=== PATIENT | female | born 1985 | race American Indian/Alaskan Native ===

== ENCOUNTER 2017-03-29 21:32 | Emergency (ER) | payer OTHER ==
[2017-03-29 22:20] LABS: Basophils % (Auto) 0.6 % (0.0-1.8); Eosinophils % (Auto) 0.8 % (0.0-4.3); Hematocrit 37.1 % (30.3-42.9); Hemoglobin 12.6 gm/dl (10.1-14.3); Mean Corpuscular HGB Conc 34 % (30-34); Mean Corpuscular Hemoglobin 32 pg (28-32); Mean Corpuscular Volume 94 fl (79-97); Platelet Count 345 K/mm3 (140-440); Red Blood Count 3.96 M/mm3 (3.65-5.03); Red Cell Distribution Width 13.6 % (13.2-15.2); White Blood Count 11.3 K/mm3 (4.5-11.0)
[2017-03-29 22:37] LABS: BUN/Creatinine Ratio 7.27; Calcium 9.4 mg/dL (8.4-10.2); Chloride 102.2 mmol/L (98-107); Potassium 3.9 mmol/L (3.6-5.0)
[2017-03-30 09:00] LABS: Urine Drugs of Abuse Note Disclamer
[2017-03-30 09:09] LABS: Bilirubin,Urine NEG (Negative); Blood,Urine NEG (Negative); Ketones,Urine TR mg/dL (Negative); Leukocyte Esterase,Urine NEG (Negative); Mucus,Urine FEW /HPF; Nitrite,Urine NEG (Negative); Urobilinogen,Urine < 2.0 mg/dL (<2.0)
[2017-03-30] MEDS ORDERED: ULTRAM PO ONE (11:09)
[2017-03-30] MEDS ORDERED: ZOFRAN ODT PO ONE (11:09)
[2017-03-30] MEDS ORDERED: NORVASC PO ONE (11:14)
--- NOTE | 2017-03-30 11:14 | Emergency Department Report ---
History of Present Illness - General Chief Complaint: Overdose Stated Complaint: MH EVAL/ATTEMPTED SUICIDE Time Seen by Provider: 03/30/17 10:36 Source: patient Mode of arrival: Ambulatory Limitations: No Limitations - History of Present Illness Initial Comments: 31 yo female the past medical history of bipolar disorder presents to the hospital complaints of suicide attempt via overdose. At 1 PM 03/29/2017 patient took 7 Motrin tablets, gabapentin 8 tablets, Tylenol 10 tablets. Patient does not know the doses of any of her medications. Patient states she is just tired of life. Complaint of feeling thirsty upon arrival. Patient complains of some generalized abdominal tenderness that started since being in the ED. Associated nausea. No complaints of vomiting, diarrhea, fever, or dysuria. Patient does not take any psychiatric medication. Previous history of suicide attempt via overdose in the past. Denies hallucinations. - Related Data Allergies Allergy/AdvReac Type Severity Reaction Status Date / Time No Known Allergies Allergy Verified 03/29/17 21:54 ED Review of Systems ROS: Stated complaint: MH EVAL/ATTEMPTED SUICIDE Other details as noted in HPI Comment: All other systems reviewed and negative Other: Constitutional: No fevers chills Eyes: No eye pain visual changes ENT: No ear pain or throat pain Neck: Denies pain Respiratory: Denies cough wheezing shortness of breath Cardiovascular: Denies chest pain, palpitations, syncope GI: As per HPI : Denies dysuria Musculoskeletal: Denies back pain Skin: Denies rash, lesions, erythema Neurologic: Denies headache, numbness, weakness Psychiatric: As per HPI ED Past Medical Hx - Past Medical History Previous Medical History?: Yes Hx Psychiatric Treatment: Yes (DEPRESSION / BIPOLAR) - Surgical History Past Surgical History?: Yes Hx Appendectomy: Yes Additional Surgical History: 3. Ectopic surgery - Social History Smoking Status: Current Every Day Smoker Substance Use Type: Alcohol ED Physical Exam - General Limitations: No Limitations - Other Other exam information: General: No limitations, patient is alert in no acute distress Head exam: Atraumatic, normocephalic Eyes exam: Normal appearance, nonicteric sclera ENT: Moist mucous membrane, normal oropharynx Neck exam: Normal inspection, full range of motion, no meningismus nontender Respiratory exam: Clear to auscultation bilateral, no wheezes, rales, crackles Cardiovascular: Normal rate and rhythm, normal heart sounds Abdomen: Soft, nondistended, mild generalized tenderness, with normal bowel sounds, no rebound, or guarding Extremity: Full range of motion normal inspection no deformity Back: Normal Inspection, full range of motion, no tenderness Neurologic: Alert, oriented x3, cranial nerves intact, no motor or sensory deficit. Stuttering speech intermittently Psychiatric: normal affect, normal mood Skin: Warm, dry, intact ED Course Vital Signs 03/29/17 03/30/17 03/30/17 21:54 01:49 08:10 Temperature 98.4 F 98.6 F 98.9 F Pulse Rate 101 H 83 96 H Respiratory 16 20 15 Rate Blood Pressure 167/113 143/102 157/107 Blood Pressure [Left] O2 Sat by Pulse 98 100 100 Oximetry 03/30/17 03/30/17 03/30/17 12:01 14:12 16:55 Temperature 98 F Pulse Rate 88 88 Respiratory 18 Rate Blood Pressure 136/82 Blood Pressure 136/82 [Left] O2 Sat by Pulse Oximetry - Reevaluation(s) Reevaluation #1: 03/30/17 11:13 Zofran and tramadol provided for nausea and pain. Norvasc ordered for persistent hypotension during ED stay ED Medical Decision Making - Lab Data Result diagrams: 03/29/17 22:07 03/29/17 22:07 Lab Results 03/29/17 03/29/17 03/29/17 Range/Units 22:07 22:07 22:07 WBC (4.5-11.0) K/mm3 RBC (3.65-5.03) M/mm3 Hgb (10.1-14.3) gm/dl Hct (30.3-42.9) % MCV (79-97) fl MCH (28-32) pg MCHC (30-34) % RDW (13.2-15.2) % Plt Count (140-440) K/mm3 Lymph % (Auto) (13.4-35.0) % [place] % (Auto) (0.0-7.3) % Eos % (Auto) (0.0-4.3) % Baso % (Auto) (0.0-1.8) % Lymph # (1.2-5.4) K/mm3 [place] # (0.0-0.8) K/mm3 Eos # (0.0-0.4) K/mm3 Baso # (0.0-0.1) K/mm3 Seg Neutrophils % (40.0-70.0) % Seg Neutrophils # (1.8-7.7) K/mm3 Sodium 143 (137-145) mmol/L Potassium 3.9 (3.6-5.0) mmol/L Chloride 102.2 (98-107) mmol/L Carbon Dioxide 26 (22-30) mmol/L Anion Gap 19 mmol/L BUN 8 (7-17) mg/dL Creatinine 1.1 (0.7-1.2) mg/dL Estimated GFR 59 ml/min BUN/Creatinine Ratio 7.27 % Glucose 83 (65-100) mg/dL Calcium 9.4 (8.4-10.2) mg/dL Total Bilirubin (0.1-1.2) mg/dL Direct Bilirubin (0-0.2) mg/dL AST (5-40) units/L ALT (7-56) units/L Alkaline Phosphatase (35-129) units/L Total Protein (6.3-8.2) g/dL Albumin (3.9-5) g/dL Albumin/Globulin Ratio % HCG, Qual (Negative) Urine Color (Yellow) Urine Turbidity (Clear) Urine pH (5.0-7.0) Ur Specific [place] (1.003-1.030) Urine Protein (Negative) mg/dL Urine Glucose (UA) (Negative) mg/dL Urine Ketones (Negative) mg/dL Urine Blood (Negative) Urine Nitrite (Negative) Urine Bilirubin (Negative) Urine Urobilinogen (<2.0) mg/dL Ur Leukocyte Esterase (Negative) Urine WBC (Auto) (0.0-6.0) /HPF Urine RBC (Auto) (0.0-6.0) /HPF U Epithel Cells (Auto) (0-13.0) /HPF Urine Mucus /HPF Salicylates < 0.3 L (2.8-20.0) mg/dL Urine Opiates Screen Urine Methadone Screen Acetaminophen 20.7 (10.0-30.0) ug/mL Ur Barbiturates Screen Ur Phencyclidine Scrn Ur Amphetamines Screen U Benzodiazepines Scrn Urine Cocaine Screen U Marijuana (THC) Screen Drugs of Abuse Note Plasma/Serum Alcohol (0-0.07) gm% 03/29/17 03/29/17 03/29/17 Range/Units 22:07 22:07 22:07 WBC 11.3 H (4.5-11.0) K/mm3 RBC 3.96 (3.65-5.03) M/mm3 Hgb 12.6 (10.1-14.3) gm/dl Hct 37.1 (30.3-42.9) % MCV 94 (79-97) fl MCH 32 (28-32) pg MCHC 34 (30-34) % RDW 13.6 (13.2-15.2) % Plt Count 345 (140-440) K/mm3 Lymph % (Auto) 23.7 (13.4-35.0) % Motley % (Auto) 5.5 (0.0-7.3) % Eos % (Auto) 0.8 (0.0-4.3) % Baso % (Auto) 0.6 (0.0-1.8) % Lymph # 2.7 (1.2-5.4) K/mm3 [place] # 0.6 (0.0-0.8) K/mm3 Eos # 0.1 (0.0-0.4) K/mm3 Baso # 0.1 (0.0-0.1) K/mm3 Seg Neutrophils % 69.4 (40.0-70.0) % Seg Neutrophils # 7.8 H (1.8-7.7) K/mm3 Sodium (137-145) mmol/L Potassium (3.6-5.0) mmol/L Chloride (98-107) mmol/L Carbon Dioxide (22-30) mmol/L Anion Gap mmol/L BUN (7-17) mg/dL Creatinine (0.7-1.2) mg/dL Estimated GFR ml/min BUN/Creatinine Ratio % Glucose (65-100) mg/dL Calcium (8.4-10.2) mg/dL Total Bilirubin (0.1-1.2) mg/dL Direct Bilirubin (0-0.2) mg/dL AST (5-40) units/L ALT (7-56) units/L Alkaline Phosphatase (35-129) units/L Total Protein (6.3-8.2) g/dL Albumin (3.9-5) g/dL Albumin/Globulin Ratio % HCG, Qual Negative (Negative) Urine Color (Yellow) Urine Turbidity (Clear) Urine pH (5.0-7.0) Ur Specific [place] (1.003-1.030) Urine Protein (Negative) mg/dL Urine Glucose (UA) (Negative) mg/dL Urine Ketones (Negative) mg/dL Urine Blood (Negative) Urine Nitrite (Negative) Urine Bilirubin (Negative) Urine Urobilinogen (<2.0) mg/dL Ur Leukocyte Esterase (Negative) Urine WBC (Auto) (0.0-6.0) /HPF Urine RBC (Auto) (0.0-6.0) /HPF U Epithel Cells (Auto) (0-13.0) /HPF Urine Mucus /HPF Salicylates (2.8-20.0) mg/dL Urine Opiates Screen Urine Methadone Screen Acetaminophen (10.0-30.0) ug/mL Ur Barbiturates Screen Ur Phencyclidine Scrn Ur Amphetamines Screen U Benzodiazepines Scrn Urine Cocaine Screen U Marijuana (THC) Screen Drugs of Abuse Note Plasma/Serum Alcohol < 0.01 (0-0.07) gm% 03/30/17 03/30/17 03/30/17 Range/Units 08:58 08:58 10:53 WBC (4.5-11.0) K/mm3 RBC (3.65-5.03) M/mm3 Hgb (10.1-14.3) gm/dl Hct (30.3-42.9) % MCV (79-97) fl MCH (28-32) pg MCHC (30-34) % RDW (13.2-15.2) % Plt Count (140-440) K/mm3 Lymph % (Auto) (13.4-35.0) % [place]ley % (Auto) (0.0-7.3) % Eos % (Auto) (0.0-4.3) % Baso % (Auto) (0.0-1.8) % Lymph # (1.2-5.4) K/mm3 [place] # (0.0-0.8) K/mm3 Eos # (0.0-0.4) K/mm3 Baso # (0.0-0.1) K/mm3 Seg Neutrophils % (40.0-70.0) % Seg Neutrophils # (1.8-7.7) K/mm3 Sodium (137-145) mmol/L Potassium (3.6-5.0) mmol/L Chloride (98-107) mmol/L Carbon Dioxide (22-30) mmol/L Anion Gap mmol/L BUN (7-17) mg/dL Creatinine (0.7-1.2) mg/dL Estimated GFR ml/min BUN/Creatinine Ratio % Glucose (65-100) mg/dL Calcium (8.4-10.2) mg/dL Total Bilirubin 0.50 (0.1-1.2) mg/dL Direct Bilirubin < 0.2 (0-0.2) mg/dL AST 15 (5-40) units/L ALT 17 (7-56) units/L Alkaline Phosphatase 57 (35-129) units/L Total Protein 7.6 (6.3-8.2) g/dL Albumin 4.2 (3.9-5) g/dL Albumin/Globulin Ratio 1.2 % HCG, Qual (Negative) Urine Color Yellow (Yellow) Urine Turbidity Clear (Clear) Urine pH 5.0 (5.0-7.0) Ur Specific [place] 1.014 (1.003-1.030) Urine Protein 100 mg/dl (Negative) mg/dL Urine Glucose (UA) Neg (Negative) mg/dL Urine Ketones Tr (Negative) mg/dL Urine Blood Neg (Negative) Urine Nitrite Neg (Negative) Urine Bilirubin Neg (Negative) Urine Urobilinogen < 2.0 (<2.0) mg/dL Ur Leukocyte Esterase Neg (Negative) Urine WBC (Auto) 5.0 (0.0-6.0) /HPF Urine RBC (Auto) 2.0 (0.0-6.0) /HPF U Epithel Cells (Auto) 2.0 (0-13.0) /HPF Urine Mucus Few /HPF Salicylates (2.8-20.0) mg/dL Urine Opiates Screen Presumptive negative Urine Methadone Screen Presumptive negative Acetaminophen (10.0-30.0) ug/mL Ur Barbiturates Screen Presumptive negative Ur Phencyclidine Scrn Presumptive negative Ur Amphetamines Screen Presumptive negative U Benzodiazepines Scrn Presumptive negative Urine Cocaine Screen Presumptive negative U Marijuana (THC) Screen Presumptive negative Drugs of Abuse Note Disclamer Plasma/Serum Alcohol (0-0.07) gm% 03/30/17 Range/Units 10:53 WBC (4.5-11.0) K/mm3 RBC (3.65-5.03) M/mm3 Hgb (10.1-14.3) gm/dl Hct (30.3-42.9) % MCV (79-97) fl MCH (28-32) pg MCHC (30-34) % RDW (13.2-15.2) % Plt Count (140-440) K/mm3 Lymph % (Auto) (13.4-35.0) % Motley % (Auto) (0.0-7.3) % Eos % (Auto) (0.0-4.3) % Baso % (Auto) (0.0-1.8) % Lymph # (1.2-5.4) K/mm3 Mot[place] # (0.0-0.8) K/mm3 Eos # (0.0-0.4) K/mm3 Baso # (0.0-0.1) K/mm3 Seg Neutrophils % (40.0-70.0) % Seg Neutrophils # (1.8-7.7) K/mm3 Sodium (137-145) mmol/L Potassium (3.6-5.0) mmol/L Chloride (98-107) mmol/L Carbon Dioxide (22-30) mmol/L Anion Gap mmol/L BUN (7-17) mg/dL Creatinine (0.7-1.2) mg/dL Estimated GFR ml/min BUN/Creatinine Ratio % Glucose (65-100) mg/dL Calcium (8.4-10.2) mg/dL Total Bilirubin (0.1-1.2) mg/dL Direct Bilirubin (0-0.2) mg/dL AST (5-40) units/L ALT (7-56) units/L Alkaline Phosphatase (35-129) units/L Total Protein (6.3-8.2) g/dL Albumin (3.9-5) g/dL Albumin/Globulin Ratio % HCG, Qual (Negative) Urine Color (Yellow) Urine Turbidity (Clear) Urine pH (5.0-7.0) Ur Specific [place] (1.003-1.030) Urine Protein (Negative) mg/dL Urine Glucose (UA) (Negative) mg/dL Urine Ketones (Negative) mg/dL Urine Blood (Negative) Urine Nitrite (Negative) Urine Bilirubin (Negative) Urine Urobilinogen (<2.0) mg/dL Ur Leukocyte Esterase (Negative) Urine WBC (Auto) (0.0-6.0) /HPF Urine RBC (Auto) (0.0-6.0) /HPF U Epithel Cells (Auto) (0-13.0) /HPF Urine Mucus /HPF Salicylates (2.8-20.0) mg/dL Urine Opiates Screen Urine Methadone Screen Acetaminophen < 15.0 (10.0-30.0) ug/mL Ur Barbiturates Screen Ur Phencyclidine Scrn Ur Amphetamines Screen U Benzodiazepines Scrn Urine Cocaine Screen U Marijuana (THC) Screen Drugs of Abuse Note Plasma/Serum Alcohol (0-0.07) gm% - EKG Data -: EKG Interpreted by Me (sinus rhythm 87 no elevation or T-wave inversions) - EKG Data When compared to previous EKG there are: previous EKG unavailable - Medical Decision Making 1013 and transfer form signed. Patient is medically cleared for admission to psychiatric facility. Blood pressure improved spontaneously she did not require any additional blood pressure treatment - Differential Diagnosis suicidal, depression Critical Care Time: No Critical care attestation.: If time is entered above; I have spent that time in minutes in the direct care of this critically ill patient, excluding procedure time. ED Disposition Clinical Impression: Suicide attempt by substance overdose, Bipolar disorder, Depression, Medical clearance for psychiatric admission Disposition: [id number]/TX-65 PSY HOSP/PSY UNIT Is pt being admited?: No Does the pt Need Aspirin: No Condition: Stable Time of Disposition: 19:41 (awaiting acceptance)
[2017-03-30 11:24] LABS: Alanine Aminotransferase 17 units/L (7-56); Albumin 4.2 g/dL (3.9-5); Albumin/Globulin Ratio 1.2 %; Alkaline Phosphatase 57 units/L (35-129); Total Protein 7.6 g/dL (6.3-8.2)
[2017-03-30 11:25] LABS: Bilirubin,Direct < 0.2 mg/dL (0-0.2)
--- NOTE | 2017-03-30 12:09 | Consultation ---
History of Present Illness - Reason for Consult Consult date: 03/30/17 Reason for consult: depression, overdose Medications and Allergies Allergies Allergy/AdvReac Type Severity Reaction Status Date / Time No Known Allergies Allergy Verified 03/29/17 21:54 Mental Status Exam - Vital signs Last Vital Signs Temp 98.9 F 03/30/17 08:10 Pulse 96 H 03/30/17 08:10 Resp 15 03/30/17 08:10 BP 157/107 03/30/17 08:10 Pulse Ox 100 03/30/17 08:10 Results Result Diagrams: 03/29/17 22:07 03/29/17 22:07 Abnormal lab results 03/29/17 03/29/17 Range/Units 22:07 22:07 WBC 11.3 H (4.5-11.0) K/mm3 Seg Neutrophils # 7.8 H (1.8-7.7) K/mm3 Salicylates < 0.3 L (2.8-20.0) mg/dL All other labs normal. Assessment and Plan Assessment and plan: CHIEF COMPLAINT IN PATIENTS WORDS: HISTORY OF PRESENT ILLNESS REQUIRING ADMISSION TO INPATIENT LEVEL OF CARE: (Describe the onset of Illness, Intensity of Symptoms, and Circumstances Leading to Admission) This is a 31 year-old domiciled female who reports a reported PPH bipolar disorder versus major depression who now presents to the ER after an overdose on acetaminophen, Motrin, gabapentin. On examination, patient appeared to be struggling with verbalizing a coherent narrative about what happened. From collateral sources, it appears patient had overdose due to prolonged depression. Patient was able to verbalize she had previous therapeutic intervention for her mood disorder; however, she did not continue it. At the current time, patient appears fairly withdrawn and dysphoric. She is tearful and requesting help for the treatment of her ongoing depressive symptoms. PSYCHIATRIC REVIEW OF SYSTEMS: Substance: Unknown Depression: Withdrawn, sad, suicidal thoughts, hopelessness Malgorzata: labile moods, denies no flight of ideas, not impulsive Psychosis: no AVH. No paranoia/grandiosity/erotomania Anxiety/ OCD/ PTSD: Frequent worry and rumination Suicidality: SI with plan Other Self-Injurious Behavior: none currently, no SIB noted recently Violent/ Aggressive Behavior: none noted CURRENT MEDICATIONS: ( Psychiatric and Non-psychiatric ) None ALLERGIES: NKDA PAST PSYCHIATRIC HISTORY: ( Prior Treatment, Precipitating Factors, Diagnosis, and Course of Treatment ) Inpatient: Recent inpatient hospitalization, location unknown Outpatient: Unknown Prior Suicide Attempts: Patient revealed provide Prior Self-Injurious Behaviors: denies PAST PSYCHIATRIC MEDICATION TRIALS: Prozac [place] MEDICAL HISTORY: (Chronic and Acute Illnesses, Current Medical Treatment, Recent Hospitalizations) Denies HISTORY OF TRAUMA/ABUSE: Unknown DRUG / ALCOHOL ABUSE HISTORY: Unknown Detoxification / Withdrawal: none noted SOCIAL HISTORY: (Educational Level, Employment, Support System, Interpersonal Relationships) Currently lives with . [id number] brought her to the hospital. Patient has children whom she takes care of with her FAMILY HISTORY: Psychiatric/Substance Abuse; unknown MENTAL STATUS EXAM: General Appearance: casually dressed, in acute distress Sensorium/Consciousness: alert and responding to external stimuli Eye Contact: limited Attitude / Behavior: cooperative, but guarded Psychomotor & Musculoskeletal Activity: Psychomotor retardation noted Mood: Withdrawn and tearful Affect: Flat Speech / Language: Disfluent, stuttering Thought Processes: Perseverative Thought Content: Suicidal, hopeless Perception: Unknown if she is responding to internal stimuli, patient unable to answer Orientation: person, place, time and situation Judgment What would you do if you smelled smoke in a crowded movie theater?: poor/impulsive Insight: poor Intelligence Vocabulary, general fund of knowledge, educational level : Below Average Capacity of ADLs: Independent STRENGTHS: PSYCHOSOCIAL AND ENVIRONMENTAL STRESSORS: Chronic untreated depression ADMITTING DIAGNOSES Psychiatric: Major depression Evidence for the following: Possible bipolar disorder Medical: n/a INITIAL PLAN OF CARE AND TREATMENT GOALS: Observe for the next 24 hours prior to initiation of pharmacotherapy intervention for depression Obtain collateral information about prior treatment history from the patient's family Recommend transfer to inpatient care facility
[2017-03-30] MEDS ORDERED: ALUM-MAG HYDROX-SIMETH 200-200-20MG/5ML PO PRN (19:40)
[2017-03-30] MEDS ORDERED: MILK OF MAGNESIA PO PRN (19:40)
--- NOTE | 2017-04-01 10:14 | Progress Note ---
Subjective - Reason for Consult Consult date: 04/01/17 Reason for consult: Psychiatry Follow-up - Chief Complaint Chief complaint: "I don't know what happened" This is a 31 year-old domiciled female who reports a reported PPH bipolar disorder versus major depression who now presents to the ER after an overdose on acetaminophen, Motrin, gabapentin. Today patient is calm and cooperative during the assessment. She stated that this isn't her first time attempting suicide. She stated she tried to kill herself a couple years ago by taking pills. She admitted trying to kill herself prior to coming to [facility]. She stated that she got into an argument with her and one thing lead to another, per the patient. She stated that she found pills and took them. Patient stated that she had been drinking alcohol (etoh) prior to taking the pills. She stated that her life is not going right and she is "tired." She has 3 kids (she has custody of 2). She acknowledged having a up and down mood throughout her adulthood. She stated that she took [place] in the past for her mood. She also, admit to consuming alcohol (etoh) everyday since her mother 3 yrs ago. She stated that she self medicate with whatever alcohol she can afford to buy. She stated that she does not use recreational drugs. She denies SI/HI's and AVH's. She stated that she resides with cousins in [place], [place]. Mental Status Exam - Vital signs Last Vital Signs Temp 98.2 F 04/01/17 08:20 Pulse 75 04/01/17 08:20 Resp 14 04/01/17 08:21 BP 130/65 04/01/17 08:20 Pulse Ox 99 04/01/17 08:20 - Exam Narrative exam: MSE: Appearance: calm, cooperative Behavior: good eye contact Speech: regular rate and tone Mood: "not sure" Affect: congruent to mood Thought Process: linear Thought Content: denies SI/HI's and AVH's Motor Activity: ambulatory Cognition: A/Ox3 Insight: fair Judgment: limited Assessment and Plan Impression: Historical diagnosis Bipolar, MDD, Alcohol Use DO. Today patient is calm and cooperative during the assessment. She stated that this isn't her first time attempting suicide. She stated she tried to kill herself a couple years ago by taking pills. She admitted trying to kill herself prior to coming to [facility]. She stated that she got into an argument with her and one thing lead to another, per the patient. She stated that she found pills and took them. She stated that her life is not going right and she is "tired." Patient stated drinking (etoh) calms her mood. No acute withdrawals noted. Recommendation/Plan: Continue 1013 with possible placement to inpatient psy services. Start Lthium 300 mg PO BID for mood. Discussed possible side effect of [place].
[2017-04-01] MEDS ORDERED: LITHOBID ER PO ONE (12:55)
[2017-04-01] MEDS ORDERED: LITHOBID ER PO SCH (16:00)
[2017-04-01] MEDS ORDERED: ESKALITH ONE (20:18)
[2017-04-01] MEDS: LITHOBID ER PO SCH (22:19)
[2017-04-02 07:55] VITALS: BP 100/58
[2017-04-02] MEDS: LITHOBID ER PO SCH (10:06)
[2017-04-02] MEDS ORDERED: BENADRYL PO PRN (11:27)
--- NOTE | 2017-04-02 13:36 | Progress Note ---
Subjective - Reason for Consult Consult date: 04/02/17 Reason for consult: Psychiatry Follow-up - Chief Complaint Chief complaint: "I don't know what happened" This is a 31 year-old domiciled female who reports a reported PPH bipolar disorder versus major depression who now presents to the ER after an overdose on acetaminophen, Motrin, gabapentin. Today patient is calm and cooperative during the assessment. She stated that this isn't her first time attempting suicide. She stated she tried to kill herself a couple years ago by taking pills. She admitted trying to kill herself prior to coming to [facility]. She stated that she got into an argument with her and one thing lead to another, per the patient. She stated that she found pills and took them. Patient stated that she had been drinking alcohol (etoh) prior to taking the pills. She stated that her life is not going right and she is "tired." She has 3 kids (she has custody of 2). She acknowledged having a up and down mood throughout her adulthood. She stated that she took [place] in the past for her mood. She also, admit to consuming alcohol (etoh) everyday since her mother 3 yrs ago. She stated that she self medicate with whatever alcohol she can afford to buy. She stated that she does not use recreational drugs. She denies SI/HI's and AVH's. She stated that she resides with cousins in [place], [place]. Mental Status Exam - Vital signs Last Vital Signs Temp 98 F 04/02/17 07:53 Pulse 76 04/02/17 07:53 Resp 16 04/02/17 07:53 BP 100/58 04/02/17 07:53 Pulse Ox 96 04/02/17 07:53 - Exam Narrative exam: MSE: Appearance: calm, cooperative Behavior: good eye contact Speech: regular rate and tone Mood: "much better" Affect: congruent to mood Thought Process: linear Thought Content: denies SI/HI's and AVH's Motor Activity: ambulatory Cognition: A/Ox3 Insight: fair Judgment: fair Assessment and Plan Impression: Historical diagnosis Bipolar, MDD, Alcohol Use DO. No acute withdrawals noted. Recommendation/Plan: Rescind 1013. Patient given local psy/rehab services for her local area. Continue Lthium 300 mg PO BID for mood. Discussed possible side effect of [place]. Discussed the importance to abstain from alcohol consumption. Discussed possibly joining AA. Safety contract completed with patient.
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
--- NOTE | 2017-04-02 17:14 | Emergency Department Report ---
Blank Doc - Documentation Documentation: Patient evaluated by mental health. 1013 rescinded. Will Continue lithium and appropriate outpatient follow-up as suggested
== END 2017-04-02 17:23 | disposition home or self-care (01) ==
LOC: ED 21:32 → EEVIPCON 21:32 → ED 04-02 17:23
DX: T42.6X2A Poisoning by other antiepileptic and sedative-hypnotic drugs, intentional self-harm, initial encounter (principal); T39.1X2A Poisoning by 4-Aminophenol derivatives, intentional self-harm, initial encounter; F31.9 Bipolar disorder, unspecified; F17.200 Nicotine dependence, unspecified, uncomplicated; Y92.89 Other specified places as the place of occurrence of the external cause
CPT/HCPCS: 36415; 80048; 80074; 80178; 80307; 81001; 84443; 84703; 85025; 93005; 93010; 99284; G0480; 80320; Q0162

== ENCOUNTER 2019-06-30 00:44 | Emergency (ER) | payer SELFPAY ==
[2019-06-30] MEDS ORDERED: MORPHINE IV ONE (06:32)
[2019-06-30] MEDS ORDERED: ZOFRAN IV ONE (06:32)
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
[2019-06-30] MEDS ORDERED: NORCO 10/325 ONE (10:14)
[2019-06-30] MEDS ORDERED: NORCO 10/325 PO ONE (10:14)
[2019-06-30 10:35] VITALS: BP 136/85
== END 2019-06-30 11:03 | disposition home or self-care (01) ==
LOC: EDBD → ED 00:44
DX: S16.1XXA Strain of muscle, fascia and tendon at neck level, initial encounter (principal); S09.90XA Unspecified injury of head, initial encounter; J45.909 Unspecified asthma, uncomplicated; F31.9 Bipolar disorder, unspecified; F17.200 Nicotine dependence, unspecified, uncomplicated; Z79.899 Other long term (current) drug therapy; Z90.49 Acquired absence of other specified parts of digestive tract; Y04.8XXA Assault by other bodily force, initial encounter; Y93.89 Activity, other specified; Y92.89 Other specified places as the place of occurrence of the external cause; Y99.8 Other external cause status
CPT/HCPCS: 36415; 70450; 70486; 72125; 74177; 84702; 96374; 96375; 99284; J2270; J2405

== ENCOUNTER 2019-06-30 15:27 | Emergency (ER) | payer SELFPAY ==
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
[2019-06-30 16:19] LABS: Basophils # (Auto) 0.1 K/mm3 (0.0-0.1); Basophils % (Auto) 1.9 % (0.0-1.8); Eosinophils % (Auto) 0.2 % (0.0-4.3); Hematocrit 37.5 % (30.3-42.9); Hemoglobin 12.5 gm/dl (10.1-14.3); Lymphocytes # (Auto) 1.6 K/mm3 (1.2-5.4); Lymphocytes % (Auto) 21.7 % (13.4-35.0); Mean Corpuscular HGB Conc 33 % (30-34); Mean Corpuscular Volume 98 fl (79-97); Monocytes # (Auto) 0.5 K/mm3 (0.0-0.8); Monocytes % (Auto) 6.7 % (0.0-7.3); Platelet Count 316 K/mm3 (140-440); Red Blood Count 3.84 M/mm3 (3.65-5.03)
[2019-06-30 16:36] LABS: BUN/Creatinine Ratio 9; Blood Urea Nitrogen 7 mg/dL (7-17); Calcium 9.8 mg/dL (8.4-10.2); Hemolysis Index 13
[2019-06-30] MEDS ORDERED: NACL 0.9% 1000 ML 1,000 ML IV ONE (19:04)
[2019-06-30 20:00] LABS: Alanine Aminotransferase 21 units/L (7-56); Albumin 4.2 g/dL (3.9-5)
[2019-06-30 20:06] LABS: Bilirubin,Direct < 0.2 mg/dL (0-0.2)
[2019-06-30 23:11] LABS: Bilirubin,Urine NEG (Negative); Blood,Urine MOD (Negative); Color,Urine Yellow (Yellow); Protein,Urine <15 mg/dL mg/dL (Negative); Urobilinogen,Urine < 2.0 mg/dL (<2.0)
[2019-06-30 23:13] LABS: Amphetamine Screen,Urine PRESUMPTIVE NEGATIVE; Benzodiazepines Screen,Urine PRESUMPTIVE NEGATIVE; Cannabinoid Screen,Urine PRESUMPTIVE NEGATIVE; Cocaine Screen,Urine PRESUMPTIVE NEGATIVE; Methadone Screen,Urine PRESUMPTIVE NEGATIVE; Opiate Screen,Urine PRESUMPTIVE NEGATIVE
[2019-07-01] MEDS ORDERED: WATER FOR INJ Sterile (PF) 10 ML ONE (13:38)
[2019-07-01] MEDS ORDERED: GEODON IM ONE (13:38)
[2019-07-01] MEDS ORDERED: ATIVAN ONE (13:39)
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
[2019-07-01] MEDS ORDERED: IBUPROFEN PO ONE (14:59)
[2019-07-01] MEDS ORDERED: MORPHINE IV ONE (16:29)
[2019-07-01] MEDS: PROzac PO SCH (19:45)
[2019-07-01 21:10] LABS: Chol/HDL Ratio 1.79 %
[2019-07-01] MEDS ORDERED: LIBRIUM PO PRN (22:13)
[2019-07-01] MEDS ORDERED: ATIVAN PO PRN (22:13)
[2019-07-01] MEDS: DESYREL PO SCH (22:45)
[2019-07-02] MEDS: PROzac PO SCH (09:54)
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
[2019-07-02] MEDS ORDERED: IBUPROFEN PO PRN (14:09)
[2019-07-02] MEDS: DESYREL PO SCH (21:35)
[2019-07-03] MEDS ORDERED: TORADOL IM ONE (09:55)
[2019-07-03] MEDS: PROzac PO SCH (10:24)
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
[2019-07-03 14:10] VITALS: BP 143/95
== END 2019-07-03 14:15 | disposition home or self-care (01) ==
LOC: ED 15:27 → EEVIPCON 15:27 → ED 07-03 14:15
DX: T39.1X2A Poisoning by 4-Aminophenol derivatives, intentional self-harm, initial encounter (principal); F31.9 Bipolar disorder, unspecified; J45.909 Unspecified asthma, uncomplicated; F17.200 Nicotine dependence, unspecified, uncomplicated; Y92.89 Other specified places as the place of occurrence of the external cause
CPT/HCPCS: 36415; 80048; 80061; 80076; 80178; 80307; 81001; 83036; 84703; 85025; 93005; 93010; J1885; J2060; J2270; J3486; J7030; 80320; 96372; 96374; G0480

== ENCOUNTER 2019-08-11 16:22 | Emergency (ER) | payer SELFPAY ==
[2019-08-11 16:38] VITALS: BP 133/93
--- NOTE | 2019-08-11 16:41 | Event Note ---
ED Screening Note Date of service: 08/11/19 Time: 16:38 ED Screening Note: This is a 34 y.o. F. that presents to the ER with right flank pain for 3 days. + n/v/d, urinary frequency, urgency, dysuria, vaginal discharge LMP 07/25/2019 This initial assessment/diagnostic orders/clinical plan/treatment(s) is/are subject to change based on patients health status, clinical progression and re- assessment by fellow clinical providers in the ED. Further treatment and workup at subsequent clinical providers discretion. Patient/guardian urged not to elope from the ED as their condition may be serious if not clinically assessed and managed. Initial orders include: Labs and CT of abdomen and pelvis
[2019-08-11 17:33] LABS: Basophils # (Auto) 0.1 K/mm3 (0.0-0.1); Basophils % (Auto) 1.3 % (0.0-1.8); Eosinophils # (Auto) 0.1 K/mm3 (0.0-0.4); Eosinophils % (Auto) 0.9 % (0.0-4.3); Lymphocytes # (Auto) 1.8 K/mm3 (1.2-5.4); Lymphocytes % (Auto) 24.1 % (13.4-35.0); Mean Corpuscular HGB Conc 36 % (30-34); Mean Corpuscular Volume 97 fl (79-97); Monocytes # (Auto) 0.4 K/mm3 (0.0-0.8); Monocytes % (Auto) 5.4 % (0.0-7.3); Platelet Count 334 K/mm3 (140-440); Red Blood Count 3.81 M/mm3 (3.65-5.03); Red Cell Distribution Width 14.1 % (13.2-15.2)
[2019-08-11 17:36] LABS: Hematocrit 37.1 % (30.3-42.9); Hemoglobin 13.5 gm/dl (10.1-14.3)
[2019-08-11 18:02] LABS: Alanine Aminotransferase 19 units/L (7-56); Albumin 4.1 g/dL (3.9-5); BUN/Creatinine Ratio 10; Blood Urea Nitrogen 7 mg/dL (7-17); Calcium 9.7 mg/dL (8.4-10.2); Hemolysis Index 14
== END 2019-08-11 18:30 | disposition left against medical advice (07) ==
LOC: ED 16:22
DX: R10.9 Unspecified abdominal pain (principal); Z53.21 Procedure and treatment not carried out due to patient leaving prior to being seen by health care provider
CPT/HCPCS: 36415; 80053; 83690; 84703; 85025

== ENCOUNTER 2019-08-13 09:30 | Emergency (ER) | payer OTHER ==
[2019-08-13 09:45] VITALS: BP 154/95
--- NOTE | 2019-08-13 11:09 | Emergency Department Report ---
ED Female HPI - General Chief complaint: Abdominal Pain Stated complaint: RIB PAIN/7 WEEKS Time Seen by Provider: 08/13/19 10:32 Source: patient Mode of arrival: Ambulatory Limitations: No Limitations - History of Present Illness Initial comments: 34-year-old 013 presents ED today for several weeks complaining of vaginal bleeding and right pelvic cramping 1 week. Patient states that pelvic cramping is worse today. Patient states that she has not started care as of yet due to the fact that she just moved over here. She states she just lost her job and does not have a place to stay at the moment. MD Complaint: vaginal bleeding - Related Data Previous Rx's Medication Instructions Recorded Last Taken Type [place] Carbonate ER [Lithobid ER] 300 mg PO BID #60 tablet 04/02/17 Unknown Rx HYDROcodone/APAP 5-325 [[place] 1 each PO Q6HR PRN #12 tablet 06/30/19 Unknown Rx 5/325] FLUoxetine [PROzac] 20 mg PO QAM #30 capsule 07/03/19 Unknown Rx traZODone [Desyrel] 50 mg PO QHS #30 tablet 07/03/19 Unknown Rx Acetaminophen [Acetaminophen 8 650 mg PO TID #30 tablet.er 08/13/19 Unknown Rx Hour] Allergies Allergy/AdvReac Type Severity Reaction Status Date / Time No Known Allergies Allergy Verified 08/13/19 09:31 ED Review of Systems ROS: Stated complaint: RIB PAIN/7 WEEKS Other details as noted in HPI Comment: All other systems reviewed and negative ED Past Medical Hx - Past Medical History Hx Psychiatric Treatment: Yes (DEPRESSION / BIPOLAR) Hx Asthma: Yes - Surgical History Hx Appendectomy: Yes Additional Surgical History: 3. Ectopic surgery . right ovary removed - Social History Smoking Status: Current Every Day Smoker - Medications Home Medications: Home Medications Medication Instructions Recorded Confirmed Last Taken Type [place] Carbonate ER [Lithobid ER] 300 mg PO BID #60 tablet 04/02/17 Unknown Rx HYDROcodone/APAP 5-325 [[place] 1 each PO Q6HR PRN #12 tablet 06/30/19 Unknown Rx 5/325] FLUoxetine [PROzac] 20 mg PO QAM #30 capsule 07/03/19 Unknown Rx traZODone [Desyrel] 50 mg PO QHS #30 tablet 07/03/19 Unknown Rx Acetaminophen [Acetaminophen 8 650 mg PO TID #30 tablet.er 08/13/19 Unknown Rx Hour] ED Physical Exam - General Limitations: No Limitations General appearance: alert, in no apparent distress - Head Head exam: Present: atraumatic, normocephalic - Eye Eye exam: Present: normal appearance - ENT ENT exam: Present: mucous membranes moist - Neck Neck exam: Present: normal inspection - Respiratory Respiratory exam: Present: normal lung sounds bilaterally. Absent: respiratory distress - Cardiovascular Cardiovascular Exam: Present: regular rate, normal rhythm. Absent: systolic murmur, diastolic murmur, rubs, gallop - GI/Abdominal GI/Abdominal exam: Present: soft, normal bowel sounds - Extremities Exam Extremities exam: Present: normal inspection - Back Exam Back exam: Present: normal inspection - Neurological Exam Neurological exam: Present: alert, oriented X3 - Psychiatric Psychiatric exam: Present: normal affect, normal mood - Skin Skin exam: Present: warm, dry, intact, normal color. Absent: rash ED Course Vital Signs 08/13/19 08/13/19 09:44 12:08 Temperature 98.4 F Pulse Rate 94 H Respiratory 16 18 Rate Blood Pressure 154/95 O2 Sat by Pulse 96 96 Oximetry ED Medical Decision Making - Lab Data Result diagrams: 08/13/19 11:06 - Radiology Data Radiology results: report reviewed, image reviewed US OB <= 14 weeks fetus, US OB transvaginal / ULTRASOUND OB - TRANSABDOMINAL AND TRANSVAGINAL INDICATION: vag bleed/pelv pain R . Right pelvic pain for 3 days. COMPARISON: None similar. FINDINGS: Transabdominal and transvaginal pelvic ultrasound performed in this patient with stated LMP of 06/25/2019 and clinical age of 7 weeks and 0 days with EDC of 03/31/2020. Positive urine test. Serum beta-hCG value not available. A 8.5 x 4.5 x 4.3 cm anteverted, gravid uterus noted. Accurate endometrial stripe thickness unobtainable. A single, viable intrauterine gestation noted towards the fundus with heart rate of 115 bpm. Mean crown-rump length of 0.44 cm corresponds to 6 weeks and 1 day. Mean gestational sac diameter of 2.13 cm corresponds to 7 weeks and 0 days. A yolk sac measuring 0.4 cm also seen. Small pelvic free fluid noted, extending to the left adnexa. Both maternal ovaries visualized. Right ovary estimated at 2.5 x 1 x 1.3 cm and demonstrates a 0.6 cm hypoechoic follicle/cyst, endovaginal image 18. Left ovary asymmetrically enlarged to 7.2 x 3.4 x 4.7 cm, secondary to possibly 2 adjacent cysts measuring approximately 4.3 and 3.8 cm in size as on endovaginal images 29-32, by thin band of tissue. IMPRESSION: 1. Single, viable intrauterine gestation with ultrasound estimated age of 6 weeks and 4 days and EDC of 04/03/2020, as described. 2. Few other findings, including two adjacent left ovarian cysts, as above. Thank you for the opportunity to participate in this patient's care. Signer Name: Robe Caceres Signed: 08/13/2019 12:16 PM Workstation Name: [id number] Transcribed By: RS Dictated By: ROBE CACERES MD Electronically Authenticated By: ROBE CACERES MD Signed Date/Time: 08/13/19 1216 - Medical Decision Making 34-year-old female presents to ED with threatened ED course: Pt received ultra sound, CBC, urinalysis, test and quantitative ED All labs within normal limits, quantitative elevated matching gestation age Case management services paged for patient. I discussed with the patient if follow-up with her [facility]. I discussed all labs and ultrasound findings with the patient. I discussed with the patient that he if bleeding worsens or new symptoms develop to return to ED immediately Critical care attestation.: If time is entered above; I have spent that time in minutes in the direct care of this critically ill patient, excluding procedure time. ED Disposition Clinical Impression: Vaginal bleeding during , Ovarian cyst, Pelvic pain during Disposition: DC-01 TO HOME OR SELFCARE Is pt being admited?: No Does the pt Need Aspirin: No Condition: Stable Instructions: Abdominal Pain (ED), Ovarian Cyst (ED), Threatened Miscarriage (ED) Additional Instructions: Make sure to follow up with the [facility] as discussed. Take all your medications as you've been prescribed. If you have any worsening symptoms or develop new symptoms please return to ED immediately. Prescriptions: Acetaminophen [Acetaminophen 8 Hour] 650 mg PO TID #30 tablet.er Referrals: PRIMARY CARE, [Primary Care Provider] - 3-5 Days [facility] [Provider Group] - 3-5 Days [facility] [Outside] - 3-5 Days [facility] [Outside] - 3-5 Days Forms: Accompanied Note, Work/School Release Form(ED) Time of Disposition: 14:25
[2019-08-13 11:27] LABS: Basophils % (Auto) 0.7 % (0.0-1.8); Eosinophils % (Auto) 0.7 % (0.0-4.3); Hematocrit 37.3 % (30.3-42.9); Hemoglobin 13.1 gm/dl (10.1-14.3); Lymphocytes # (Auto) 1.5 K/mm3 (1.2-5.4); Lymphocytes % (Auto) 22.9 % (13.4-35.0); Mean Corpuscular HGB Conc 35 % (30-34); Mean Corpuscular Volume 97 fl (79-97); Monocytes # (Auto) 0.5 K/mm3 (0.0-0.8); Monocytes % (Auto) 7.2 % (0.0-7.3); Platelet Count 361 K/mm3 (140-440); Red Blood Count 3.85 M/mm3 (3.65-5.03); Red Cell Distribution Width 13.8 % (13.2-15.2)
[2019-08-13 12:04] LABS: Bilirubin,Urine NEG (Negative); Blood,Urine NEG (Negative); Color,Urine Yellow (Yellow); Mucus,Urine FEW /HPF; Protein,Urine <15 mg/dL mg/dL (Negative); Urobilinogen,Urine < 2.0 mg/dL (<2.0)
--- NOTE | 2019-08-13 12:21 | Ultrasound Report ---
US OB <= 14 weeks fetus, US OB transvaginal / ULTRASOUND OB - TRANSABDOMINAL AND TRANSVAGINAL INDICATION: vag bleed/pelv pain R . Right pelvic pain for 3 days. COMPARISON: None similar. FINDINGS: Transabdominal and transvaginal pelvic ultrasound performed in this patient with stated LMP of 06/25/2019 and clinical age of 7 weeks and 0 days with EDC of 03/31/2020. Positive urine t est. Serum beta-hCG value not available. A 8.5 x 4.5 x 4.3 cm anteverted, gravid uterus noted. Accurate endometrial stripe thickness unobtaina ble. A single, viable intrauterine gestation noted towards the fundus with heart rate of 115 bp m. Mean crown-rump length of 0.44 cm corresponds to 6 weeks and 1 day. Mean gestational sac diameter of 2.13 cm corresponds to 7 weeks and 0 days. A yolk sac measuring 0.4 cm also seen. Small pelvic valerie e fluid noted, extending to the left adnexa. Both maternal ovaries visualized. Right ovary estimated at 2.5 x 1 x 1.3 cm and demonstrates a 0.6 cm hypoechoic follicle/cyst, endovaginal image 18. Left ovary asymmetrically enlarged to 7.2 x 3.4 x 4. 7 cm, secondary to possibly 2 adjacent cysts measuring approximately 4.3 and 3.8 cm in size as on end ovaginal images 29-32, by thin band of tissue. IMPRESSION: 1. Single, viable intrauterine gestation with ultrasound estimated age of 6 weeks and 4 days and EDC of 04/03/2020, as described. 2. Few other findings, including two adjacent left ovarian cysts, as above. Thank you for the opportunity to participate in this patient's care. Signer Name: Robe Hannah Signed: 08/13/2019 12:16 PM Workstation Name: [id number]
[2019-08-13] MEDS ORDERED: TYLENOL PO ONE (12:33)
== END 2019-08-13 14:38 | disposition home or self-care (01) ==
LOC: ED 09:30
DX: O34.81 Maternal care for other abnormalities of pelvic organs, first trimester (principal); N83.202 Unspecified ovarian cyst, left side; O99.511 Diseases of the respiratory system complicating pregnancy, first trimester; J45.909 Unspecified asthma, uncomplicated; O99.341 Other mental disorders complicating pregnancy, first trimester; F31.9 Bipolar disorder, unspecified; O99.331 Smoking (tobacco) complicating pregnancy, first trimester; Z90.49 Acquired absence of other specified parts of digestive tract; Z79.899 Other long term (current) drug therapy; Z3A.01 Less than 8 weeks gestation of pregnancy
CPT/HCPCS: 36415; 76801; 76817; 81001; 84702; 84703; 85025; 86900; 86901; 96372; 99284